=== PATIENT | male | born 1990 | race Asian ===

== ENCOUNTER 2023-05-26 15:34 | Outpatient (CLI) | payer OTHER, SELFPAY ==
[2023-05-26 23:34] LABS: Chlamydia DNA Amplified* NOT DETECTED (No Detected); GC DNA Amplified* NOT DETECTED (No Detected)
== END 2023-05-26 15:35 | disposition home or self-care (01) ==
PROVIDERS: Visit Provider Physician Assistant
DX: R35.0 Frequency of micturition (principal); Z11.3 Encounter for screening for infections with a predominantly sexual mode of transmission
CPT/HCPCS: 80074; 86592; 87491; 87591